=== PATIENT | male | born 1970 | race Caucasian/White ===

== ENCOUNTER 2023-11-22 15:42 | Inpatient (IN) | payer OTHER ==
[2023-11-22 17:07] VITALS: BMI 27.2
[2023-11-22] MEDS ORDERED: BENZONATATE 200 MG CAPSULE PO PRN (19:26)
[2023-11-22] MEDS ORDERED: POLYETHYLENE GLYCOL (HEALTHYLAX) 3350 17 GM PACKET PO PRN (19:26)
[2023-11-22] MEDS ORDERED: LOPERAMIDE HCL 2 MG CAPSULE PO PRN (19:26)
[2023-11-22] MEDS ORDERED: NALOXONE HCL 0.4 MG/ML VIAL IM PRN (19:26)
[2023-11-22] MEDS ORDERED: MAGNESIUM HYDROX 2400MG/30ML ORAL SUSPENSION 30 ML CUP PO PRN (19:26)
[2023-11-22] MEDS ORDERED: NALOXONE HCL (KLOXXADO) 8 MG SPRAY NS PRN (19:26)
[2023-11-22] MEDS ORDERED: guaiFENesin 600 MG TABLET.ER (FP) PO PRN (19:26)
[2023-11-22] MEDS ORDERED: BENZOCAINE/MENTHOL (CHLORASEPTIC ) LOZENGE MM PRN (19:26)
[2023-11-22] MEDS ORDERED: MAG HYDROX/AL HYDROX/SIMETH 30 ML UNIT-DOSE CUP PO PRN (19:26)
[2023-11-22] MEDS ORDERED: DICYCLOMINE HCL 10 MG CAPSULE PO PRN (19:26)
[2023-11-22] MEDS ORDERED: IBUPROFEN 400 MG TABLET (FP) PO PRN (19:26)
[2023-11-22] MEDS ORDERED: ONDANSETRON *ODT* 4 MG TABLET SL PRN (19:26)
[2023-11-22] MEDS ORDERED: ACETAMINOPHEN 325 MG TABLET (FP) PO PRN (19:26)
[2023-11-22] MEDS: THIAMINE HCL 100 MG TABLET (FP) PO SCH (22:18)
[2023-11-22] MEDS: MELATONIN 5 MG TABLETS PO SCH (22:18)
[2023-11-22] MEDS: chlordiazePOXIDE HCL 25 MG CAPSULE PO SCH (22:19)
[2023-11-23] MEDS ORDERED: methaDONE HCL 10 MG TABLET PO SCH (09:45)
[2023-11-23] MEDS: methaDONE 200 MG, methaDONE 30 MG, methaDONE 5 MG PO ONE (10:15)
[2023-11-23] MEDS: PRENATAL VITAMINS W/ FOLIC ACID TABLET (FP) PO SCH (10:20)
[2023-11-23 12:14] LABS: HEMATOCRIT 35.8 % (35.4-49); HEMOGLOBIN 11.8 GM/dL (11.7-16.9); MCH 27.8 pg (25.7-33.7); MEAN CELL VOLUME 84.1 fl (80-96); MEAN PLT VOLUME 8.3 fl (7.5-11.1); PLATELET COUNT 216 10^3/uL (134-434); RBC 4.26 M/mm3 (4.00-5.60); RDW 14.6 % (11.9-15.9); WHITE BLOOD COUNT 4.2 K/mm3 (4.0-10.0)
[2023-11-23 13:54] LABS: CHLORIDE 104 mmol/L (98-107); POTASSIUM 4.5 mmol/L (3.5-5.1); SODIUM 139 mmol/L (136-145)
[2023-11-23 13:59] LABS: ALBUMIN 3.5 g/dl (3.4-5.0); BLOOD UREA NITROGEN 14.3 mg/dL (7-18); CALCIUM 8.7 mg/dL (8.5-10.1); GLUCOSE,RANDOM 98 mg/dL (74-106)
[2023-11-23 14:01] LABS: ANION GAP 5 mmol/L (4-13); CO2 30 mmol/L (21-32)
[2023-11-23 14:02] LABS: CREATININE 0.7 mg/dL (0.55-1.3); SGOT/AST 32 U/L (15-37); SGPT/ALT 33 U/L (13-61)
[2023-11-23 14:03] LABS: BILIRUBIN,TOTAL 0.5 mg/dL (0.2-1)
[2023-11-23 14:04] LABS: TOT PROT 6.7 g/dl (6.4-8.2)
[2023-11-23 14:13] LABS: ALK PHOS 95 U/L (45-117)
[2023-11-23] MEDS: chlordiazePOXIDE HCL 25 MG CAPSULE PO PRN (14:45)
[2023-11-23] MEDS: QUEtiapine FUMARATE 50 MG TABLET PO SCH (22:04)
[2023-11-23] MEDS: hydrOXYzine PAMOATE 25 MG CAPSULE (FP) PO PRN (22:05)
[2023-11-24] MEDS: chlordiazePOXIDE HCL 25 MG CAPSULE PO SCH (05:41)
[2023-11-24] MEDS: methaDONE 200 MG, methaDONE 30 MG, methaDONE 5 MG PO SCH (05:42)
[2023-11-24] MEDS: IBUPROFEN 600 MG TABLET (FP) PO PRN (22:04)
[2023-11-25] MEDS: chlordiazePOXIDE HCL 10 MG CAPSULE PO SCH (05:46)
[2023-11-25] MEDS: METHOCARBAMOL 500 MG TABLET PO PRN (13:12)
[2023-11-25] MEDS: chlordiazePOXIDE HCL 10 MG CAPSULE PO PRN (13:15)
[2023-11-26] MEDS: chlordiazePOXIDE HCL 10 MG CAPSULE PO SCH (05:38)
[2023-11-26] MEDS: BISMUTH SUBSALICYLATE 524 MG/30 ML PO PRN (10:12)
[2023-11-27] MEDS: chlordiazePOXIDE HCL 10 MG CAPSULE PO ONE (05:37)
[2023-11-27 06:36] VITALS: RESP 18
[2023-11-27 09:14] VITALS: BP 95/61; PULSE 60; TEMP 97.7
== END 2023-11-27 10:59 | disposition home or self-care (01) | DRG 773 ==
LOC: YASAS 15:42 → Y3N 19:22
PROVIDERS: ADMIT Allergy & Immunology; ATTEND Surgery
PROC: HZ2ZZZZ Detoxification Services for Substance Abuse Treatment (ICD-10-PCS; principal; 2023-11-22)
DX: F10.230 Alcohol dependence with withdrawal, uncomplicated (principal); F11.20 Opioid dependence, uncomplicated; F14.20 Cocaine dependence, uncomplicated; F17.210 Nicotine dependence, cigarettes, uncomplicated; F31.81 Bipolar II disorder; G47.00 Insomnia, unspecified; I10 Essential (primary) hypertension
CPT/HCPCS: 36415; 80053; 80307; 85027; 86780; 87635; 93005; 93010

== ENCOUNTER 2023-12-28 15:05 | Inpatient (IN) | payer OTHER ==
[2023-12-28 15:48] VITALS: BMI 25.2
[2023-12-28] MEDS ORDERED: NALOXONE HCL (KLOXXADO) 8 MG SPRAY NS PRN (18:56)
[2023-12-28] MEDS ORDERED: LOPERAMIDE HCL 2 MG CAPSULE PO PRN (18:56)
[2023-12-28] MEDS ORDERED: IBUPROFEN 400 MG TABLET (FP) PO PRN (18:56)
[2023-12-28] MEDS ORDERED: P-EPHED 60MG/TRIPROLIDI 2.5MG TABLET PO PRN (18:56)
[2023-12-28] MEDS ORDERED: DOCUSATE SODIUM 100 MG CAPSULE (FP) PO PRN (18:56)
[2023-12-28] MEDS ORDERED: MAG HYDROX/AL HYDROX/SIMETH 30 ML UNIT-DOSE CUP PO PRN (18:56)
[2023-12-28] MEDS ORDERED: MAGNESIUM HYDROX 2400MG/30ML ORAL SUSPENSION 30 ML CUP PO PRN (18:56)
[2023-12-28] MEDS ORDERED: guaiFENesin 600 MG TABLET.ER (FP) PO PRN (18:56)
[2023-12-28] MEDS ORDERED: NALOXONE HCL 0.4 MG/ML VIAL IM PRN (18:56)
[2023-12-28] MEDS ORDERED: POLYETHYLENE GLYCOL (HEALTHYLAX) 3350 17 GM PACKET PO PRN (18:56)
[2023-12-28] MEDS ORDERED: BENZONATATE 200 MG CAPSULE PO PRN (18:56)
[2023-12-28] MEDS ORDERED: BENZOCAINE/MENTHOL (CHLORASEPTIC ) LOZENGE MM PRN (18:56)
[2023-12-28] MEDS: THIAMINE HCL 100 MG TABLET (FP) PO SCH (21:08)
[2023-12-28] MEDS: MELATONIN 5 MG TABLETS PO SCH (21:08)
[2023-12-29] MEDS ORDERED: methaDONE HCL 10 MG TABLET PO SCH (08:30)
[2023-12-29] MEDS: methaDONE 200 MG, methaDONE 30 MG, methaDONE 5 MG PO SCH (08:49)
[2023-12-29] MEDS: PRENATAL VITAMINS W/ FOLIC ACID TABLET (FP) PO SCH (09:03)
[2023-12-29 12:13] LABS: HEMATOCRIT 37.6 % (35.4-49); HEMOGLOBIN 12.1 GM/dL (11.7-16.9); MCH 27.4 pg (25.7-33.7); MCHC 32.3 g/dl (32.0-35.9); MEAN CELL VOLUME 84.8 fl (80-96); MEAN PLT VOLUME 8.3 fl (7.5-11.1); PLATELET COUNT 229 10^3/uL (134-434); RBC 4.43 M/mm3 (4.00-5.60); RDW 16.7 % (11.9-15.9); WHITE BLOOD COUNT 4.3 K/mm3 (4.0-10.0)
[2023-12-29 12:37] LABS: ALBUMIN 3.4 g/dl (3.4-5.0); BLOOD UREA NITROGEN 19.4 mg/dL (7-18); CALCIUM 9.2 mg/dL (8.5-10.1)
[2023-12-29 12:39] LABS: CREATININE 0.8 mg/dL (0.55-1.3)
[2023-12-29 12:41] LABS: BILIRUBIN,TOTAL 0.3 mg/dL (0.2-1); TOT PROT 6.7 g/dl (6.4-8.2)
[2023-12-29 14:53] LABS: URINE APPEARANCE CLEAR; URINE BILIRUBIN NEGATIVE (NEGATIVE); URINE COLOR YELLOW; URINE GLUCOSE (UA) NEGATIVE (NEGATIVE); URINE KETONE NEGATIVE (NEGATIVE); URINE LEUK ESTERASE NEGATIVE (NEGATIVE); URINE NITRITE NEGATIVE (NEGATIVE); URINE PROTEIN NEGATIVE (NEGATIVE)
[2023-12-29] MEDS: MIRTAZAPINE 15 MG TABLET (FP) PO SCH (21:10)
[2024-01-08] MEDS: IBUPROFEN 600 MG TABLET (FP) PO PRN (09:43)
[2024-01-09] MEDS: BACLOFEN 10 MG TABLET (FP) PO SCH (11:54)
[2024-01-10] MEDS: MIRTAZAPINE 30 MG TABLET PO SCH (21:00)
[2024-01-24 06:53] VITALS: BP 115/70; PULSE 61; RESP 16; TEMP 97.8
== END 2024-01-25 08:32 | disposition home or self-care (01) | DRG 772 ==
LOC: YASAS 15:05 → Y3E 20:19 → Y5N 01-22 18:57
PROVIDERS: ADMIT Allergy & Immunology; ATTEND Psychiatry & Neurology Pain Medicine
PROC: HZ42ZZZ Group Counseling for Substance Abuse Treatment, Cognitive-Behavioral (ICD-10-PCS; principal; 2023-12-28)
DX: F10.20 Alcohol dependence, uncomplicated (principal); F14.20 Cocaine dependence, uncomplicated; F13.20 Sedative, hypnotic or anxiolytic dependence, uncomplicated; F11.20 Opioid dependence, uncomplicated; F17.210 Nicotine dependence, cigarettes, uncomplicated; F31.9 Bipolar disorder, unspecified; F19.282 Other psychoactive substance dependence with psychoactive substance-induced sleep disorder; F19.24 Other psychoactive substance dependence with psychoactive substance-induced mood disorder; G47.00 Insomnia, unspecified; H54.61 Unqualified visual loss, right eye, normal vision left eye; I10 Essential (primary) hypertension
CPT/HCPCS: 36415; 80053; 80305; 81003; 85027; 86780; 87635; 87811; 93005; 93010; J0475

== ENCOUNTER 2024-04-03 12:57 | Inpatient (IN) | payer OTHER ==
[2024-04-03] MEDS ORDERED: ONDANSETRON *ODT* 4 MG TABLET SL PRN (15:33)
[2024-04-03] MEDS ORDERED: MAGNESIUM HYDROX 2400MG/30ML ORAL SUSPENSION 30 ML CUP PO PRN (15:33)
[2024-04-03] MEDS ORDERED: DICYCLOMINE HCL 10 MG CAPSULE PO PRN (15:33)
[2024-04-03] MEDS ORDERED: NALOXONE (NARCAN) HCL 4 MG/0.1 ML SPRAY NS PRN (15:33)
[2024-04-03] MEDS ORDERED: POLYETHYLENE GLYCOL (HEALTHYLAX) 3350 17 GM PACKET PO PRN (15:33)
[2024-04-03] MEDS ORDERED: BENZOCAINE/MENTHOL (CHLORASEPTIC ) LOZENGE MM PRN (15:33)
[2024-04-03] MEDS ORDERED: ACETAMINOPHEN 325 MG TABLET (FP) PO PRN (15:33)
[2024-04-03] MEDS ORDERED: guaiFENesin 600 MG TABLET.ER (FP) PO PRN (15:33)
[2024-04-03] MEDS ORDERED: NALOXONE HCL 0.4 MG/ML VIAL IM PRN (15:33)
[2024-04-03] MEDS ORDERED: BISMUTH SUBSALICYLATE 524 MG/30 ML PO PRN (15:33)
[2024-04-03] MEDS ORDERED: BENZONATATE 200 MG CAPSULE PO PRN (15:33)
[2024-04-03] MEDS ORDERED: MAG HYDROX/AL HYDROX/SIMETH 30 ML UNIT-DOSE CUP PO PRN (15:33)
[2024-04-03 15:59] VITALS: BMI 25.7
[2024-04-03] MEDS: IBUPROFEN 600 MG TABLET (FP) PO PRN (18:52)
[2024-04-03] MEDS: chlordiazePOXIDE HCL 25 MG CAPSULE PO PRN (18:53)
[2024-04-03] MEDS: chlordiazePOXIDE HCL 25 MG CAPSULE PO SCH (22:42)
[2024-04-03] MEDS: THIAMINE 100 MG TABLET PO SCH (22:43)
[2024-04-03] MEDS: MELATONIN 5 MG TABLETS PO SCH (22:43)
[2024-04-03] MEDS: METHOCARBAMOL 500 MG TABLET PO PRN (22:43)
[2024-04-04] MEDS: PRENATAL VITAMINS W/ FOLIC ACID TABLET (FP) PO SCH (10:16)
[2024-04-04] MEDS ORDERED: methaDONE HCL 10 MG TABLET PO ONE (10:40)
[2024-04-04] MEDS: methaDONE 200 MG, methaDONE 30 MG, methaDONE 5 MG PO ONE (11:05)
[2024-04-04] MEDS: MIRTAZAPINE 15 MG TABLET (FP) PO SCH (22:02)
[2024-04-04] MEDS: IBUPROFEN 400 MG TABLET (FP) PO PRN (22:07)
[2024-04-05] MEDS: chlordiazePOXIDE HCL 25 MG CAPSULE PO SCH (05:40)
[2024-04-05] MEDS: methaDONE 200 MG, methaDONE 30 MG, methaDONE 5 MG PO SCH (08:00)
[2024-04-05] MEDS: methaDONE HCL 10 MG TABLET PO SCH (08:23)
[2024-04-05 12:00] LABS: HEMATOCRIT 38.1 % (35.4-49); HEMOGLOBIN 12.4 GM/dL (11.7-16.9); MCH 27.7 pg (25.7-33.7); MCHC 32.5 g/dl (32.0-35.9); MEAN CELL VOLUME 85.4 fl (80-96); MEAN PLT VOLUME 8.7 fl (7.5-11.1); PLATELET COUNT 220 10^3/uL (134-434); RBC 4.47 M/mm3 (4.00-5.60); RDW 14.7 % (11.9-15.9); WHITE BLOOD COUNT 3.8 K/mm3 (4.0-10.0)
[2024-04-05] MEDS: hydrOXYzine PAMOATE 25 MG CAPSULE (FP) PO PRN (12:29)
[2024-04-05 13:04] LABS: HIV INTERPRETATION NEGATIVE (NEGATIVE)
[2024-04-05] MEDS: amLODIPine BESYLATE 5 MG TABLET (FP) PO SCH (16:48)
[2024-04-05] MEDS: LOPERAMIDE HCL 2 MG CAPSULE PO PRN (18:54)
[2024-04-05 20:20] LABS: CHLORIDE 108 mmol/L (98-107); POTASSIUM 4.3 mmol/L (3.5-5.1); SODIUM 143 mmol/L (136-145)
[2024-04-05 20:23] LABS: ALBUMIN 3.5 g/dl (3.4-5.0); ANION GAP 5 mmol/L (4-13); BLOOD UREA NITROGEN 21.6 mg/dL (7-18); CALCIUM 8.9 mg/dL (8.5-10.1); CO2 30 mmol/L (21-32); GLUCOSE,RANDOM 110 mg/dL (74-106)
[2024-04-05 20:26] LABS: CREATININE 0.8 mg/dL (0.55-1.3); SGPT/ALT 52 U/L (13-61)
[2024-04-05 20:27] LABS: SGOT/AST 38 U/L (15-37)
[2024-04-05 20:28] LABS: BILIRUBIN,TOTAL 0.2 mg/dL (0.2-1); TOT PROT 6.3 g/dl (6.4-8.2)
[2024-04-05 20:29] LABS: ALK PHOS 112 U/L (45-117)
[2024-04-06] MEDS ORDERED: chlordiazePOXIDE HCL 10 MG CAPSULE PO PRN
[2024-04-06] MEDS: chlordiazePOXIDE HCL 10 MG CAPSULE PO SCH (05:19)
[2024-04-06] MEDS: diazePAM 5 MG TABLET PO SCH (10:08)
[2024-04-06] MEDS: diazePAM 5 MG TABLET PO PRN (17:02)
[2024-04-07] MEDS ORDERED: chlordiazePOXIDE HCL 10 MG CAPSULE PO SCH (05:00)
[2024-04-07] MEDS: diazePAM 5 MG TABLET PO SCH (09:09)
[2024-04-08] MEDS ORDERED: chlordiazePOXIDE HCL 10 MG CAPSULE PO ONE (05:00)
[2024-04-08] MEDS: diazePAM 5 MG TABLET PO ONE (05:58)
[2024-04-08 06:30] VITALS: TEMP 97.1
[2024-04-08 09:10] VITALS: BP 117/50; PULSE 66; RESP 16
== END 2024-04-08 11:05 | disposition home or self-care (01) | DRG 773 ==
LOC: YASAS 12:57 → Y6N 17:59
PROVIDERS: ADMIT Allergy & Immunology; ATTEND Surgery
PROC: HZ2ZZZZ Detoxification Services for Substance Abuse Treatment (ICD-10-PCS; principal; 2024-04-03)
DX: F10.230 Alcohol dependence with withdrawal, uncomplicated (principal); F11.20 Opioid dependence, uncomplicated; F14.20 Cocaine dependence, uncomplicated; F12.20 Cannabis dependence, uncomplicated; F17.213 Nicotine dependence, cigarettes, with withdrawal; F19.282 Other psychoactive substance dependence with psychoactive substance-induced sleep disorder; F39 Unspecified mood [affective] disorder; F32.A Depression, unspecified; I10 Essential (primary) hypertension; B19.20 Unspecified viral hepatitis C without hepatic coma; Z97.0 Presence of artificial eye
CPT/HCPCS: 36415; 80053; 80305; 80307; 85027; 86780; 86803; 87389; 87522; 93005; 93010